=== PATIENT | female | born 1975 | race Caucasian/White ===

== ENCOUNTER → 2020-12-01 | Outpatient (CLI) | payer BC ==
[~2020-12-01] MED LIST: CARAFATE1 GM PO; CITALOPRAM HBR20 MG PO; CLARITIN 10MG T10 MG PO; COLACE 100MG C100 MG PO; FERROUS SULFAT325 M2 PO; FLONASE 0.05% N16 GM; FOLBEE TABLET1 EACH PO; IBUPROFEN800 MG PO; LIPITOR TAB 1010 MG PO; MULTIVITAMINS1 EAC1 PO; NAPROSYN500 MG PO; NAPROXEN 250 M250 MG PO; NORCO 5-325 TA1 EACH PO; PROTONIX40 MG PO; ZANTAC300 MG PO; ZOFRAN4 MG PO; ZOLOFT50 MG PO
== END ==
LOC: CT 11-17 08:00
DX: M54.12 Radiculopathy, cervical region (principal); M54.16 Radiculopathy, lumbar region; R42 Dizziness and giddiness; H93.A2 Pulsatile tinnitus, left ear; M51.37 Other intervertebral disc degeneration, lumbosacral region
CPT/HCPCS: 36415; 70496; 70498; 72040; 72100; 82565; Q9967